=== PATIENT | male | born 1995 | race Caucasian/White ===

== ENCOUNTER 2021-02-19 09:02 | Emergency (ER) | payer SELFPAY ==
[2021-02-19 09:02] VITALS: BP 166/88; PULSE 75; RESP 15; TEMP 36.2; O2SAT 97
[2021-02-19 09:03] VITALS: BP 166/88; PULSE 75; RESP 15; TEMP 36.2; O2SAT 97; BMI 33.9
[2021-02-19 09:33] LABS: Absolute Lymphocyte Count 1.73 X10^3/uL (0.83-4.51); Absolute Neutrophil Count 2.1 X10^3/uL (2.0-7.7); Basophil# 0.07 X10^3/uL; Basophil% 1.6 % (0-1); Eosinophils% 2.2 % (0-5); Hematocrit 46.4 % (40-54); Hemoglobin 14.8 g/dL (13.0-16.5); Lymphocyte # 1.73 X10^3/ul (0.83-4.51); Lymphocyte % 38.8 % (19-41); Mean Corp Hgb Conc 31.9 g/dL (32-36); Mean Corpuscular Hgb 25.9 pg (27.0-32.0); Mean Corpuscular Volume 81.1 fL (80-94); Mean Platelet Vol. 11.5 fl (6.2-12.0); Monocyte# 0.43 X10^3/uL; Monocyte% 9.6 % (0-10); NRBC Flagged by Analyzer 0 % (0-5); Neutrophil # 2.11 X10^3/uL (2.7-7.7); Neutrophil % 47.4 % (47-70); Platelet Count 189 K/mm3 (150-450); RBC Distribution Width CV 13.3 % (11.6-14.6); Red Blood Count 5.72 M/mm3 (4.6-6.2); White Blood Count 4.5 K/mm3 (4.4-11.0)
--- NOTE | 2021-02-19 09:37 | ED.VIS.GI ---
HPI HPI - GI History of Present Illness Chief Complaint: Abd Pain Narrative Narrative: Patient presenting for evaluation secondary to abdominal pain. Patient states that since yesterday he has had a development of right lower quadrant abdominal pain. Its continuous type pain that sharp its worse with palpation and movement as well as the car ride here. Patient reports that he has had some decreased appetite associated with this but denies any fevers nausea vomiting diarrhea dysuria hematuria. He is never had any prior similar episodes in the past. No history of abdominal surgeries in the past. Review of systems otherwise negative. PFSH PFSH no medical history Home Medications amoxicillin 500 mg PO TID #30 tab 08/27/17 [Rx Last Taken Unknown] naproxen 500 mg PO BID #20 tab 08/27/17 [Rx Last Taken Unknown] Allergy/AdvReac Type Severity Reaction Status Date / Time bismuth subsalicylate AdvReac Swelling Verified 08/27/17 09:25 [From Pepto-Bismol] Social History Smoking Status: Smoker, status unknown ROS ROS ED Constitutional Constitutional ED: Reports systems reviewed and no addt'l complaints, except as documented ENT ENT ED: Reports systems reviewed and no addt'l complaints, except as documented Cardiovascular Cardiovascular: Reports systems reviewed and no addt'l complaints, except as documented Respiratory/Chest Respiratory/Chest: Reports systems reviewed and no addt'l complaints, except as documented Gastrointestinal Gastrointestinal: Reports as per HPI Genitourinary Genitourinary ED: Reports systems reviewed and no addt'l complaints, except as documented Musculoskeletal Musculoskeletal: Reports systems reviewed and no addt'l complaints, except as documented Integumentary Reports systems reviewed and no addt'l complaints, except as documented Neurologic Neurologic: Reports systems reviewed and no addt'l complaints, except as documented Psychiatric Psychiatric: Reports systems reviewed and no addt'l complaints, except as documented Endocrine Endocrinology: Reports systems reviewed and no addt'l complaints, except as documented Hematologic/Lymphatic Hematologic/Lymphatic: Reports systems reviewed and no addt'l complaints, except as documented Allergic/Immunologic Allergic/Immunologic ED: Reports systems reviewed and no addt'l complaints, except as documented EXAM Physical Exam Const Vital Signs: 02/19/21 09:02 02/19/21 09:03 02/19/21 10:23 Temperature 97.2 F L 97.2 F L 98.2 F Temperature Source Temporal Temporal Temporal Pulse Rate 75 75 70 Respiratory Rate 15 15 14 Blood Pressure 166/88 H 166/88 H 143/71 H Blood Pressure Mean 114 114 95 Pulse Ox 97 97 98 Oxygen Delivery Method Room Air Room Air Room Air Positive well nourished, well developed and no apparent distress General Appearance ED: well developed HEENT Reports normocephalic and head/scalp atraumatic Eyes EOMs intact bilaterally Neck full ROM Resp normal respiratory effort and normal air movement Auscultation: clear to auscultation bilaterally Cardio regular rate and regular rhythm Peripheral Pulses: pulses 2+ throughout GI GI Narrative: Abdomen is normal to inspection. It is nondistended. There is tenderness noted in the right lower quadrant with guarding on deep palpation. Positive Rovsing and obturator sign is noted. Some evidence of peritonitis as the patient has some diffuse tenderness as well. Back/Spine normal ROM Extremity normal to inspection and full ROM Neuro oriented x3 Psych mental status grossly normal Skin no rashes or lesions noted MDM MDM MDM Narrative Medical decision making narrative: Patient presented for evaluation secondary to abdominal pain. Patient did have some right lower quadrant tenderness, work-up for the possibility of appendicitis was performed. CBC demonstrates no leukocytosis or shift, chemistry was found to be unremarkable. CT abdomen and pelvis was performed with IV contrast, demonstrates no evidence of appendicitis does show some fatty infiltration of the liver, but also shows some questionable colitis surrounding the rectosigmoid colon. I went back in and reevaluated the patient he has a nonsurgical abdomen, he does report to me that he has rectal pain when he has bowel movements and more often than not when he wipes he will have some blood on the toilet paper. Patient at this point has some inflammation around his rectosigmoid colon, and some chronic symptoms with blood with wiping this potentially could be a presentation of inflammatory bowel disease. This does not appear to be infectious in etiology at this time given his normal lab work and lack of fever. I do believe that the patient requires outpatient follow-up with general surgery for potential colonoscopy. Patient was instructed of the importance of this. I do not feel that he requires admission or further observation. Patient was educated on signs and symptoms which to return, he was discharged in stable condition. Lab Data Labs: Laboratory Results - last 24 hr 02/19/21 02/19/21 09:25 09:25 WBC 4.5 RBC 5.72 Hgb 14.8 Hct 46.4 MCV 81.1 MCH 25.9 L MCHC 31.9 L RDW Std Deviation 39.0 RDW Coeff of Carmelo 13.3 Plt Count 189 MPV 11.5 Immature Gran % (Auto) 0.400 Neut % (Auto) 47.4 Lymph % (Auto) 38.8 Heard % (Auto) 9.6 Eos % (Auto) 2.2 Baso % (Auto) 1.6 H Absolute Neuts (auto) 2.1 Absolute Lymphs (auto) 1.73 Nucleated RBC % 0 Sodium 139 Potassium 4.0 Chloride 107 Carbon Dioxide 26.0 Anion Gap 6 BUN 13 Creatinine 0.88 Estim Creat Clear Calc 138.40 Est GFR (MDRD) Af Amer 133 Est GFR (MDRD) Non-Af 110 BUN/Creatinine Ratio 14.8 Glucose 89 Calcium 9.1 Radiography Diagnostic Testing: Radiology Impression Abdomen/Pelvis CT 02/19/21 10:15 IMPRESSION: Fatty infiltration of the liver. Questionable colitis involving the rectosigmoid colon. Clinical correlation is recommended. Electronically Signed: George Mei MD at 10:45 EDT , Service support , Discharge Plan Triage Chief Complaint: Abd Pain ED Provider: Ashvin Manzanares Dx/Rx/DC Orders Clinical Impression: Colitis Instructions: ED Abdominal Pain Excl Appendx Male Prescriptions: No Action amoxicillin 500 MG tablet 500 mg PO TID Qty: 30 RF: 0 naproxen 500 MG tablet 500 mg PO BID Qty: 20 RF: 0 Primary Care Provider: Care Physician,No Primary Referrals: Jailyn Lu MD [STAFF PHYSICIAN] - 3-5 Days Care Physician,No Primary [Primary Care Provider] - Disposition Patient Disposition: Home, self care
[2021-02-19 09:46] LABS: Anion Gap 6 (5-15); BUN 13 mg/dL (7-18); BUN/Creat Ratio 14.8 RATIO (10-20); Calcium,Total 9.1 mg/dL (8.5-10.1); Chloride 107 mmol/L (98-107); Creatinine, Serum 0.88 mg/dL (0.70-1.30); EST Glomerular Filtration Rate 110 mL/min (>60); Est Glom Filt Rate - Afr Amer 133 mL/min (>60); Glucose 89 mg/dL (74-106); Sodium Level 139 mmol/L (136-145)
--- NOTE | 2021-02-19 10:15 | CT_ITS ---
STUDY: CT ABDOMEN AND PELVIS WITH CONTRAST REASON FOR EXAM: Male, 25 years old. Abd pain RADIATION DOSAGE (If Supplied By Facility): CTDIvol = ( 16.50 ) mGy, DLP = ( 1401.10 ) mGycm TECHNIQUE: Transaxial images were obtained from the dome of the diaphragm to the symphysis pubis without oral contrast. IV 100mL Isovue-300 was administered. Sagittal and coronal images were reconstructed. Individualized dose optimization techniques were used for this CT. COMPARISON: None. FINDINGS: Minimal degree of deep and bibasilar atelectasis. The visualized portions of the heart are within normal limits. There is decreased attenuation of the liver consistent with steatosis. Normal gallbladder and extrahepatic biliary system. Normal spleen. Normal pancreas. Normal bilateral adrenal glands. Normal right kidney. Normal left kidney. Normal visualized stomach. Normal small intestine. Mild degree of thickening and increased markings surrounding the rectosigmoid colon. Mild degree of colitis should be ruled out. The appendix is visualized and appears normal. Normal abdominal aorta. Normal inferior vena cava. There is borderline retroperitoneal lymphadenopathy with enlarged nodes no greater than 10mm in the short axis diameter. Normal urinary bladder. Normal abdominal wall. There is spondylolysis of the pars interarticularis of the L5 vertebrae. No significant listhesis is seen. CT/Abdomen/Pelvis W IV Cont ONLY IMPRESSION: Fatty infiltration of the liver. Questionable colitis involving the rectosigmoid colon. Clinical correlation is recommended. Electronically Signed: George Mei MD at 10:45 EDT , Service support ,
[2021-02-19 10:23] VITALS: BP 143/71; PULSE 70; RESP 14; TEMP 36.8; O2SAT 98
[2021-02-19 11:10] VITALS: BP 142/93; PULSE 61
== END 2021-02-19 11:22 | disposition home or self-care (01) ==
PROVIDERS: Emergency Provider Emergency Medicine
DX: R10.31 Right lower quadrant pain (principal); K52.9 Noninfective gastroenteritis and colitis, unspecified
CPT/HCPCS: 74177; 80048; 85025; 99283; Q9967; A4216

== ENCOUNTER 2021-03-11 08:38 | Day surgery (SDC) | payer SELFPAY ==
[2021-02-22 09:49] VITALS: BMI 33.9
[2021-03-11] VITALS (7 sets, daily range): BP systolic 99–140; BP diastolic 70–88; PULSE 61–73; RESP 16; TEMP 36.2–36.7; O2SAT 96–99; BMI 34.7
[2021-03-11] MEDS: Lactated Ringers 1,000 ML 100 ML IV (09:17)
--- NOTE | 2021-03-11 09:29 | PCM.HP.BLA ---
History and Physical Date of Admission: 03/11/21 Date of Service: 02/22/21 MR#:[id number] Name: GUSTAVO GUILLEN Rep #:[id number] :1995 Age/Sex: 25/M Provider:Dr. 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 Jailyn Lu MD) Back problem Blood in stool Elevated blood pressure reading in office without diagnosis of hypertension Fatigue Numbness and tingling Surgical History (Updated 02/22/21 @ 09:47 by Barb Meza) History of placement of ear tubes History of tonsillectomy Hx of wisdom tooth extraction Family History (Updated 02/22/21 @ 09:48 by Barb Meza) Father Hypertension Social History (Updated 02/22/21 @ 09:49 by Barb Meza) Smoking Status: Former smoker alcohol intake: current alcohol intake frequency: holidays/special occasions only substance use type: does not use caffeine: Yes (rarely) what type of physical activity do you participate in: none frequency: does not exercise HPI: GUSTAVO GUILLEN, is a 25 M who presents to the office today for blood in stool. Patient states that for about the last year he has noticed some bright red blood when wiping it can be either a small amount or a larger amount occasionally. Patient states he does strain quite often on the toilet. Patient states he has bowel once daily denies any previous colonoscopies or family history of colon cancer. Patient denies any reflux symptoms or heartburn. Patient does state he drinks a lot of water but is unsure about the fiber he gets in his diet. Patient states occasionally he can have some sharp pain with bowel movements he is unsure if he has hemorrhoids or not. He does state he will also randomly gets left upper quadrant/left lower chest pain that last for about 1 second--- will have it about every other day a few episodes. ROS General General: No fatigue Gastro Gastrointestinal: No abdominal pain, No nausea or vomiting, No diarrhea, Yes constipation, Yes blood in stool, No acid reflux and No black,tarry stools Exam Const General: cooperative, healthy appearing, comfortable and no acute distress Chest Other: Patient does have a mild amount of discomfort pressing on the left side lower ribs at a focal area anteriorly, no pain over the sternum or right side ribs or more lateral ribs. Patient denies any trauma no change of the overlying skin. Resp Effort & Inspection: normal respiratory effort Cardio Rate: regular rate GI Inspection: non-distended Palpation: soft, no guarding and nontender COVID (Procedure Consent) Procedure Criteria Procedure Criteria: Yes Elective The surgeon/proceduralist and patient have discussed in detail the risk of exposure to and/or potential harm posed by the COVID-19 virus with having a surgery/procedure at this time versus the risk of delaying the surgery/procedure. It is not possible to know either the risk of delaying the surgery or procedure or chance of getting an infection with perfect accuracy, but a joint decision was made between the patient and the surgeon/proceduralist to proceed at this time with the scheduled surgery/procedure as indicated on the consent form. Assessment and Plan Assessment and Plan (1) Blood in stool: Status: Acute Plan - Dr. Jailyn Lu MD: Did discuss the importance of adequate fiber in diet to prevent straining which can also help help improve hemorrhoids if they could be causing bleeding. Patient deferred REILLY during visit. I have discussed the above with the patient. I have offered the patient colonoscopy for evaluation. Scheduled for 03/11 per patient request I have explained the risks/benefits of the procedure and described the procedure. I have discussed the risks with the patient, including but not limited to: infection, bleeding, perforation of the GI tract requiring emergency surgery, inability to complete the procedure, injury to any internal organs, complications of anesthesia, etc. - the patient understands and agrees to proceed. I have answered all the patient's questions to the patient's satisfaction and the patient has no further questions. The patient has been given instructions for the colon cleansing preparation. Jailyn Lu M.D. Pager: [phone] [facility] [address] [place] [address], [facility], [address] [place] [address] Office: [phone] (2) Elevated blood pressure reading in office without diagnosis of hypertension: Status: Acute Plan - Dr. Jailyn Lu MD: Did give patient pressure for PCPs (3) Left-sided chest wall pain: Plan - Dr. Jailyn Lu MD: Recommend patient try scheduled ibuprofen with food to see if this improves as it is only a focal area patient denies any trauma to this area. Coding Level of Care Code Off vis,new,level 3 Diagnoses Blood in stool K92.1 Elevated blood pressure reading in office without diagnosis of hypertension R03.0 Left-sided chest wall pain R07.89 02/22/21 1109<Electronically signed by Jailyn Lu MD>Date Jailyn Lu MD
--- NOTE | 2021-03-11 10:17 | OP.COLON_ITS ---
Patient Name: Tex Schilling Procedure Date: 03/11/2021 9:31 AM Date of : 1995 Age: 25 Procedure: Colonoscopy Indications: Rectal bleeding Providers: Jailyn Lu MD Referring MD: No Primary Care Physician Medicines: Monitored Anesthesia Care Patient Profile: This is a 25 year old male. Last Colonoscopy: none. The patient's first colonoscopy is today. Complications: No immediate complications. Procedure: Pre-Anesthesia Assessment: - Prior to the procedure, a History and Physical was performed, and patient medications and allergies were reviewed. The patient's tolerance of previous anesthesia was also reviewed. The risks and benefits of the procedure and the sedation options and risks were discussed with the patient. All questions were answered, and informed consent was obtained. Prior Anticoagulants: The patient has taken no previous anticoagulant or antiplatelet agents. ASA Grade Assessment: Per anesthesia. After reviewing the risks and benefits, the patient was deemed in satisfactory condition to undergo the procedure. After I obtained informed consent, the scope was passed under direct vision. Throughout the procedure, the patient's blood pressure, pulse, and oxygen saturations were monitored continuously. The pediatric colonoscope was introduced through the anus and advanced to the cecum, identified by the appendiceal orifice, ileocecal valve and palpation. The colonoscopy was performed without difficulty. The patient tolerated the procedure well. Scope In: 9:50:11 AM Scope Withdrawal Time 0 hours 8 minutes 40 seconds Scope Out: 10:05:48 AM Total Procedure Duration Time 0 hours 15 minutes 37 seconds Findings: An anal fissure was found on perianal exam. Non-bleeding internal hemorrhoids were found. The hemorrhoids were Grade I (internal hemorrhoids that do not prolapse). The entire examined colon appeared normal. Impression: - Anal fissure found on perianal exam. - Non-bleeding internal hemorrhoids. - The entire examined colon is normal. - No specimens collected. Recommendation: - Discharge patient to home. - Resume previous diet. - Recommend diltiazem/lidocaine ointment applied to anal fissure medication 2-3 times daily PRN--sent to [facility] pharmacy, sitz baths (warm water with epsom salts 1-2x daily). - Continue present medications. - Repeat colonoscopy at age 45/50 depending on if insurance has changed the screening age to 45 as [employer] did change it to 45. Procedure Code(s): --- Professional --- 58415, Colonoscopy, flexible; diagnostic, including collection of specimen(s) by brushing or washing, when performed (separate procedure) Diagnosis Code(s): --- Professional --- K60.2, Anal fissure, unspecified K64.0, First degree hemorrhoids K62.5, Hemorrhage of anus and rectum CPT copyright 2017 [employer]. All rights reserved. The codes documented in this report are preliminary and upon window shade installer review may be revised to meet current compliance requirements. MD Jailyn Reardon MD 03/11/2021 10:17:15 AM This report has been signed electronically. Number of Addenda: 0 Note Initiated On: 03/11/2021 9:31 AM
--- NOTE | 2021-03-11 10:17 | OP.CCLET_ITS ---
03/11/2021 No Primary Care Physician Re : Colonoscopy procedure for Tex Schilling Dear Care Physician This procedure was performed on Thursday, March 11, 2021. My impressions and recommendations are as follows: Impressions : - Anal fissure found on perianal exam. - Non-bleeding internal hemorrhoids. - The entire examined colon is normal. - No specimens collected. Recommendations : - Discharge patient to home. - Resume previous diet. - Recommend diltiazem/lidocaine ointment applied to anal fissure medication 2-3 times daily PRN--sent to [facility] pharmacy, sitz baths (warm water with epsom salts 1-2x daily). - Continue present medications. - Repeat colonoscopy at age 45/50 depending on if insurance has changed the screening age to 45 as [employer] did change it to 45. My findings are described in the full procedure note, which is enclosed. If I can be of further assistance, please feel free to contact me at Doctor phone number(s): , Work: . Sincerely, MD Jailyn Reardon MD 03/11/2021 10:17:15 AM This report has been signed electronically.
== END 2021-03-11 11:29 ==
LOC: EN 08:39 → AC 08:39
PROVIDERS: Visit Provider Surgery
PROC: 0DJD8ZZ Inspection of Lower Intestinal Tract, Via Natural or Artificial Opening Endoscopic (ICD-10-PCS; CPT 45378; principal; 2021-03-11 09:40)
DX: K60.2 Anal fissure, unspecified (principal); K64.0 First degree hemorrhoids; K64.8 Other hemorrhoids; Z20.822 Contact with and (suspected) exposure to COVID-19; R10.9 Unspecified abdominal pain; R07.89 Other chest pain; R03.0 Elevated blood-pressure reading, without diagnosis of hypertension; Z87.891 Personal history of nicotine dependence
CPT/HCPCS: 45378; 87426; C9803; J7120; J2405